=== PATIENT | male | born 1945 | race Caucasian/White ===

== ENCOUNTER → 2016-05-17 | Outpatient (CLI) | payer BC ==
[~2016-05-17] MED LIST: ADVA500A INH; ADVAI500I PO; ALBU.5I NEB; ALBU1AER INH; DUONI NEB; MONT10 PO; MONT10TA4 PO; OXYGENTANK NAS.CANULA; PRED20 PO; SYMB160A INH; VENTAER INH; Z.0.OXYGENDME NASAL
[2016-05-17 11:31] LABS: BLOOD GAS BASE EXCESS 13.9 mmol/L (-2-2); BLOOD GAS CARBOXYHEMOGLOBIN 3.2 % (0-4); BLOOD GAS HCO3 40 mmol/L (22-26); BLOOD GAS METHEMOGLOBIN 1.2 % (0-2); BLOOD GAS O2 HGB SATURATION 87 % (90-100); BLOOD GAS OXYGEN CONTENT 16.1 Vol % (12.0-20.0); BLOOD GAS PCO2 79 mmHg (38-42); BLOOD GAS PO2 59 mmHg (61-120); BLOOD GAS TOTAL HGB 13.2 G/DL (12.0-16.0); TEMP CORR TO 98.6
[2016-05-17 11:32] LABS: CRITICAL VALUE YES; DRAW SITE RT RADIAL; LITER FLOW 3 L/M; NUMBER OF ARTERIAL PUNCTURES 1; STAT NO; ULNAR PULSE PRESENT
--- NOTE | 2016-06-02 12:45 | RSPPFT ---
DATE OF PROCEDURE: 05/17/16 COMMENTS: VOLUMES DYNAMIC: FVC moderately reduced; FEV1 severely reduced. STATIC: TLC, VTG moderately reduced; RV normal. FLOWS: FEV1% and FEF 25-75 severely reduced. DIFFUSION: Severely reduced. FLOW VOLUME LOOP: Pattern of variable intrathoracic airways obstruction. IMPRESSION: Very severe obstructive ventilatory defect with co-existent restriction. There is a severe reduction in diffusion as well. No significant change post-bronchodilator.
== END ==
LOC: HRSP 10:31
PROVIDERS: ATTEND Internal Medicine
DX: J44.9 Chronic obstructive pulmonary disease, unspecified (principal)
CPT/HCPCS: 36600; 82805; 94060; 94726; 94729

== ENCOUNTER 2016-05-25 13:10 | Inpatient (IN) | payer BC, MEDICARE ==
[~2016-05-25] VITALS: Ht 180.3 cm; Wt 98.4 kg
[~2016-05-25 13:10] MED LIST changes: -ADVA500A INH; -ALBU.5I NEB; -MONT10TA4 PO; -OXYGENTANK NAS.CANULA; -PRED20 PO; -SYMB160A INH; -VENTAER INH
[2016-05-25 13:13] VITALS: BP 150/65; PULSE 95; RESP 35; O2SAT 97
[2016-05-25] MEDS ORDERED: ALBU.5I NEB (13:28)
[2016-05-25] MEDS ORDERED: VENTAER INH (13:28)
[2016-05-25] MEDS ORDERED: PRED20 PO (13:28)
[2016-05-25] MEDS ORDERED: MONT10TA4 PO (13:28)
[2016-05-25] MEDS ORDERED: ADVA500A INH (13:28)
--- NOTE | 2016-05-25 13:28 | PD ---
HPI Chief Complaint: Respiratory Distress Time Seen by Provider: 13:18 Travel History International Travel<30 days: No Contact w/Intl Traveler<30days: No Traveled to known affect area: No History of Present Illness HPI Patient is a 70-year-old male with history of COPD on chronic home O2 at 3 L who presents emergency Department with near respiratory arrest. Patient apparently took off his home oxygen and was doing house chores. Patient is unsure what happened and does not recall this. States he became increasingly short of breath, lightheaded. EMS was called and when patient arrived he was extremely dyspneic with O2 saturations in the low 50s. Maldonado, no capillary refill. Patient was given all albuterol 3, 125 mg Solu-Medrol and placed on nonrebreather with improvement of O2 into the 92-95% range. Patient states he still feels dyspneic, as though he is working harder to breathe. Please otherwise he's been well recently without cough, cold, chest congestion, etc. No chest pain. PFSH Past Medical History Asthma: Yes Blood Disorders: No Heart Rhythm Problems: No Cancer: No Cardiovascular Problems: No High Cholesterol: No Chemotherapy: No Chest Pain: No Congestive Heart Failure: No COPD: Yes Diabetes: No Endocrine: No Genitourinary: No Hepatitis: No Hiatal Hernia: No Immune Disorder: No Musculoskeletal: No Neurologic: No Psychiatric: No Reproductive: No Respiratory: Yes (CONTINUOUS OXYGEN SUPPLEMENT - 2L NC) Radiation Therapy: No Sleep Apnea: No Thyroid Disease: No Past Surgical History Abdominal Surgery: Yes (APPENDECTOMY) AICD: No Joint Replacement: No Pacemaker: No Other Surgery: Yes (APPY, L ELBOW FX) Social History Alcohol Use: Yes (several times/week ) Tobacco Use: Yes (trying to quit. 2 cigarettes Tuesday ) Substance Use: No Allergies-Medications (Allergen,Severity, Reaction): Coded Allergies: No Known Allergies (Unverified , 12/24/15) Reported Meds & Prescriptions Reported Meds & Active Scripts Active Reported Montelukast (Montelukast Sodium) 10 Mg Tab 10 Mg PO HS Ventolin Hfa 18 GM Inh (Albuterol Sulfate) 90 Mcg/Act Aer 1 Puff INH Q4H PRN Albuterol Neb (Albuterol Sulfate) 2.5 Mg/0.5 Ml Neb 2.5 Mg NEB QID NEB Note: The Albuterol Sulfate Inhalation Solution is concentrated and must be diluted. Read complete instructions carefully before using. Advair Diskus Inh (Fluticasone-Salmeterol Inh) 500-50 Mcg/Blist Aer 1 Puff INH BID Rinse mouth after use. Prednisone 20 Mg Tab 20 Mg PO QID Review of Systems Except as stated in HPI: all other systems reviewed are Neg Physical Exam Narrative GENERAL: Well-appearing male in no acute distress SKIN: Warm and dry. HEAD: Normocephalic. EYES:No scleral icterus. No injection or drainage. ENT: Mucous membranes pink and moist. NECK: Supple CARDIOVASCULAR: Regular rate and rhythm. No murmur appreciated. RESPIRATORY: Mild respiratory distress with prolonged expiratory phase. Decreased breath sounds throughout but no audible wheezing GASTROINTESTINAL: Abdomen soft, non-tender, nondistended. MUSCULOSKELETAL: No obvious deformities No edema. NEUROLOGICAL: Awake and alert. Normal speech. PSYCHIATRIC: Appropriate mood and affect; insight and judgment normal. Data Data Last Documented VS Vital Signs Date Time Temp Pulse Resp B/P Pulse Ox O2 Delivery O2 Flow Rate FiO2 05/25/16 13:41 96 Nasal Cannula 3.00 05/25/16 13:13 95 35 150/65 Orders Complete Blood Count With Diff (05/25/16 13:18) Basic Metabolic Panel (Bmp) (05/25/16 13:18) Troponin I (05/25/16 13:18) Arterial Blood Gas (Abg) (05/25/16 13:18) Iv Access Insert/Monitor (05/25/16 13:18) Electrocardiogram (05/25/16 13:18) Ecg Monitoring (05/25/16 13:18) Oximetry (05/25/16 13:18) Oxygen Administration (05/25/16 13:18) Chest, Single Ap (05/25/16 13:18) Sodium Chloride 0.9% Flush (Ns Flush) (05/25/16 13:30) Methylprednisolone So Succ Inj (Solumedr (05/25/16 13:30) Albuterol-Ipratropium Neb (Duoneb Neb) (05/25/16 13:30) Labs Laboratory Tests Test 05/25/16 05/25/16 13:23 13:49 White Blood Count 6.3 TH/MM3 Red Blood Count 4.25 MIL/MM3 Hemoglobin 12.9 GM/DL Hematocrit 40.4 % Mean Corpuscular Volume 95.1 FL Mean Corpuscular Hemoglobin 30.5 PG Mean Corpuscular Hemoglobin 32.1 % Concent Red Cell Distribution Width 13.9 % Platelet Count 129 TH/MM3 Mean Platelet Volume 9.0 FL Neutrophils (%) (Auto) 83.0 % Lymphocytes (%) (Auto) 9.0 % Monocytes (%) (Auto) 6.9 % Eosinophils (%) (Auto) 0.8 % Basophils (%) (Auto) 0.3 % Neutrophils # (Auto) 5.3 TH/MM3 Lymphocytes # (Auto) 0.6 TH/MM3 Monocytes # (Auto) 0.4 TH/MM3 Eosinophils # (Auto) 0.1 TH/MM3 Basophils # (Auto) 0.0 TH/MM3 CBC Comment DIFF FINAL Differential Comment Sodium Level 141 MEQ/L Potassium Level 4.7 MEQ/L Chloride Level 90 MEQ/L Carbon Dioxide Level GREATER THAN 45.0 MEQ/L Anion Gap 6 MEQ/L Blood Urea Nitrogen 18 MG/DL Creatinine 0.90 MG/DL Estimat Glomerular Filtration 83 ML/MIN Rate Random Glucose 115 MG/DL Calcium Level 9.3 MG/DL Troponin I LESS THAN 0.02 NG/ML Blood Gas Puncture Site RT RADIAL Blood Gas Patient Temperature 98.6 Blood Gas HCO3 49 mmol/L Blood Gas Base Excess 21.4 mmol/L Blood Gas Oxygen Saturation 92 % Arterial Blood pH 7.29 Arterial Blood Partial 105 mmHg Pressure CO2 Arterial Blood Partial 89 mmHG Pressure O2 Arterial Blood Oxygen Content 16.5 Vol % Arterial Blood 3.5 % Carboxyhemoglobin Arterial Blood Methemoglobin 1.0 % Blood Gas Hemoglobin 12.7 G/DL Oxygen Delivery Device NASAL CANNULA Blood Gas Liter Flow 3 L/M [facility] Medical Decision Making Medical Screen Exam Complete: Yes Emergency Medical Condition: Yes Medical Record Reviewed: Yes Differential Diagnosis 70-year-old male with history of COPD on home O2 at 3 L here with near respiratory arrest, after he took off his home oxygen with O2 sats in the 50s. Differential includes medication/oxygen nonadherence, near respiratory arrest, COPD exacerbation, pneumothorax, symptomatic anemia, arrhythmia, ACS. Narrative Course Patient placed on monitor, IV established and blood obtained. A twelve-lead EKG shows sinus rhythm without notable ST abnormalities, normal intervals. Patient hard he given Solu-Medrol per EMS. Given 3 duo nebs here. CBC, BMP, troponin, ABG notable for acute respiratory acidosis of pH 7.291, PCO2 105, PO2 89.1, bicarbonate 48.9. Patient was placed on BiPAP to help with hypercapnia. Patient had improvement in his work of breathing. Portable chest x-ray obtained by my read showing no acute abnormalities. Patient treated with azithromycin and will be admitted for further management of hypercapnic and hypoxic respiratory failure. Critical Care Narrative Aggregate critical care time was 45 minutes. Time to perform other separately billable procedures was not included in the critical care time. My time did not include minutes spent treating any other patients simultaneously or on activities that did not directly contribute to the patient's treatment. The services I provided to this patient were to treat and/or prevent clinically significant deterioration that could result in: Cardiopulmonary decompensation, , disability I provided critical care services requiring my management, as noted below: Chart data review, documentation time, medication orders and management, vital sign assessments/reviewing monitor data, ordering and reviewing lab tests, ordering and interpreting/reviewing x-rays and diagnostic studies, care of the patient and discussion of the patient with the admitting physicians. Diagnosis Primary Impression: Respiratory failure with hypoxia and hypercapnia Qualified Code: J96.21 - Acute on chronic respiratory failure with hypoxia and hypercapnia Additional Impression: COPD with exacerbation Admitting Information Admitting Physician Requests: Admit Jessica Harris MD May 25, 2016 13:27
[2016-05-25] MEDS ORDERED: methylPREDNISolone SOD SUCC 125 MG/2 ML VIAL IVP ONE (13:30)
[2016-05-25 13:41] VITALS: O2SAT 96
[2016-05-25] MEDS: RESP: ALBUTEROL 2.5 MG/IPRATROPIUM 0.5 MG NEB (SCH) INH ×3 (13:41→23:49)
[2016-05-25 13:49] LABS: AUTOMATED NEUTROPHIL # 5.3 TH/MM3 (1.8-7.7); BASOPHIL % 0.3 % (0.0-2.0); EOSINOPHIL # 0.1 TH/MM3 (0-0.4); EOSINOPHIL % 0.8 % (0.0-4.0); HEMATOCRIT 40.4 % (39.0-51.0); HEMO FLAGS DIFF FINAL; LYMPHOCYTE # 0.6 TH/MM3 (1.0-4.8); MEAN CELL VOLUME 95.1 FL (80.0-100.0); MEAN CORPUSCULAR HEMOGLOBIN 30.5 PG (27.0-34.0); MEAN CORPUSCULAR HGB CONC 32.1 % (32.0-36.0); MONO % 6.9 % (0.0-8.0); PLATELET COUNT 129 TH/MM3 (150-450); RED BLOOD COUNT 4.25 MIL/MM3 (4.50-5.90); RED CELL DISTRIBUTION WIDTH 13.9 % (11.6-17.2); WHITE BLOOD COUNT 6.3 TH/MM3 (4.0-11.0)
[2016-05-25 13:58] LABS: BLOOD GAS BASE EXCESS 21.4 mmol/L (-2-2); BLOOD GAS CARBOXYHEMOGLOBIN 3.5 % (0-4); BLOOD GAS HCO3 49 mmol/L (22-26); BLOOD GAS O2 HGB SATURATION 92 % (90-100); BLOOD GAS OXYGEN CONTENT 16.5 Vol % (12.0-20.0); BLOOD GAS PCO2 105 mmHg (38-42); BLOOD GAS PO2 89 mmHG (61-120); BLOOD GAS TOTAL HGB 12.7 G/DL (12.0-16.0); CRITICAL VALUE YES; TEMP CORR TO 98.6
[2016-05-25 13:59] LABS: DRAW SITE RT RADIAL; LITER FLOW 3 L/M; NUMBER OF ARTERIAL PUNCTURES 2; OXYGEN DEVICE NASAL CANNULA; STAT YES; ULNAR PULSE PRESENT
[2016-05-25 14:04] LABS: ANION GAP 6 MEQ/L (5-15); BICARBONATE GREATER THAN 45.0 MEQ/L (21.0-32.0); BLOOD UREA NITROGEN 18 MG/DL (7-18); CHLORIDE 90 MEQ/L (98-107); GLOMERULAR FILTRATION RATE 83 ML/MIN (>89); POTASSIUM 4.7 MEQ/L (3.5-5.1); SODIUM (NA) 141 MEQ/L (136-145)
--- NOTE | 2016-05-25 14:20 | RADRPT ---
EXAM DATE/TIME: 05/25/2016 14:00 [facility] COMPARISON: CHEST SINGLE AP, May 14, 2015, 9:28. INDICATIONS : Dyspnea. MEDICAL HISTORY : Chronic obstructive pulmonary disease. SURGICAL HISTORY : Appendectomy. ENCOUNTER: Initial ACUITY: 1 day PAIN SCORE: 0/10 LOCATION: Bilateral chest FINDINGS: A single view of the chest demonstrates the lungs to be symmetrically aerated without evidence of mas s, infiltrate or effusion. The cardiomediastinal contours are unremarkable. Osseous structures are intact. CONCLUSION: No acute disease. Seth Oliver MD on May 25, 2016 at 14:17 Board Certified Radiologist. This report was verified electronically.
[2016-05-25 14:23] VITALS: O2SAT 96
[2016-05-25] MEDS ORDERED: AZITHROMYCIN 600 MG TAB PO ONE (14:30)
[2016-05-25 15:38] LABS: BLOOD GAS BASE EXCESS 21.2 mmol/L (-2-2); BLOOD GAS CARBOXYHEMOGLOBIN 3.3 % (0-4); BLOOD GAS HCO3 48 mmol/L (22-26); BLOOD GAS O2 HGB SATURATION 92 % (90-100); BLOOD GAS OXYGEN CONTENT 17.3 Vol % (12.0-20.0); BLOOD GAS PCO2 87 mmHg (38-42); BLOOD GAS PO2 85 mmHG (61-120); BLOOD GAS TOTAL HGB 13.3 G/DL (12.0-16.0); TEMP CORR TO 98.6
[2016-05-25 15:39] LABS: CRITICAL VALUE YES; DRAW SITE LT RADIAL; FIO2 40 %; NUMBER OF ARTERIAL PUNCTURES 1; OXYGEN DEVICE BiPAP; STAT YES; ULNAR PULSE PRESENT
[2016-05-25] MEDS ORDERED: DO NOT ADM ANY ANTICOAGULANT DRUGS XX PRN (16:45)
[2016-05-25] MEDS ORDERED: CHLORHEXIDINE GLUCONATE 2 % 1 PACK (2 CLOTHS)(extra cloths) TOP PRN (16:45)
[2016-05-25] MEDS ORDERED: RESP: ALBUTEROL 2.5 MG/IPRATROPIUM 0.5 MG NEB (PRN) INH (17:00)
--- NOTE | 2016-05-25 17:04 | PD.CONS ---
[facility] Service Critical Care Medicine Consult Requested By Dr. Harris Reason for Consult hypercarbic respiratory failure Primary Care Physician Yocasta Choudhury MD History of Present Illness This is a 70yM with severe end-stage COPD on 3L home o2 who is followed by Dr. Giovany Alvarado. He was in his otherwise baseline state of health and he is moving into a new home, when he decided to help his move. She did this, he took off his oxygen, and worked harder than he typically does, became acutely hypoxic and hypercarbic requiring EMS to evaluate him. Per report, His SPO2 was in the 50s on arrival. When he arrived to the emergency department, he was immediately placed on BiPAP for respiratory distress. Initial ABG demonstrated 7.29/105/89. This quickly normalized to 7.36/87/85 with BiPAP. The patient denies any chest pain, fever, chills, recent changes in sputum production. Critical care medicine has been consulted to assist with management of his severe hypercarbic respiratory failure. Review of Systems Constitutional: DENIES: Fever, Chills Respiratory: DENIES: Cough, Wheezing, Sputum production Cardiovascular: DENIES: Chest pain Gastrointestinal: DENIES: Abdominal pain Past Family Social History Allergies: Coded Allergies: No Known Allergies (Unverified , 12/24/15) Past Medical History Asthma COPD, o2 dependent, 3L continuous at home. Past Surgical History appendectomy left elbow fx Reported Medications Montelukast (Montelukast Sodium) 10 Mg Tab 10 Mg PO HS Ventolin Hfa 18 GM Inh (Albuterol Sulfate) 90 Mcg/Act Aer 1 Puff INH Q4H PRN Albuterol Neb (Albuterol Sulfate) 2.5 Mg/0.5 Ml Neb 2.5 Mg NEB QID NEB Note: The Albuterol Sulfate Inhalation Solution is concentrated and must be diluted. Read complete instructions carefully before using. Advair Diskus Inh (Fluticasone-Salmeterol Inh) 500-50 Mcg/Blist Aer 1 Puff INH BID Rinse mouth after use. Prednisone 20 Mg Tab 20 Mg PO QID Active Ordered Medications See MAR Family History significant family history of severe COPD with multiple family members dying of hypercarbic respiratory failure. Social History +etoh, several times a week 2 cigarettes/day. Physical Exam Vital Signs Vital Signs Date Time Temp Pulse Resp B/P Pulse Ox O2 Delivery O2 Flow Rate FiO2 05/25/16 14:23 96 40 05/25/16 13:42 96 BiPAP 40 05/25/16 13:41 96 Nasal Cannula 3.00 05/25/16 13:13 95 35 150/65 97 05/25/16 13:13 98 Nasal Cannula 4 05/25/16 13:13 35 97 Nasal Cannula 4 Physical Exam gen: cachectic elderly male, moderate resp distress heent: nc. at. eddie. mucous membranes moist. neck: no jvd. bipap in place. trachea midline. chest: very decreased breath sounds bilaterally. minimal air entry. expiratory wheezes bilaterally. increased expiratory time cv: normal rate, regular rhythm. no appreciable murmurs. abd: soft, nontender, nondistended. no guarding. extr: no peripheral edema. distal pulses 2+ neuro: awake, alert, RASS 0. fc x 4. Laboratory Laboratory Tests Test 05/25/16 05/25/16 05/25/16 13:23 13:49 15:29 White Blood Count 6.3 Red Blood Count 4.25 Hemoglobin 12.9 Hematocrit 40.4 Mean Corpuscular Volume 95.1 Mean Corpuscular Hemoglobin 30.5 Mean Corpuscular Hemoglobin 32.1 Concent Red Cell Distribution Width 13.9 Platelet Count 129 Mean Platelet Volume 9.0 Neutrophils (%) (Auto) 83.0 Lymphocytes (%) (Auto) 9.0 Monocytes (%) (Auto) 6.9 Eosinophils (%) (Auto) 0.8 Basophils (%) (Auto) 0.3 Neutrophils # (Auto) 5.3 Lymphocytes # (Auto) 0.6 Monocytes # (Auto) 0.4 Eosinophils # (Auto) 0.1 Basophils # (Auto) 0.0 CBC Comment DIFF FINAL Differential Comment Sodium Level 141 Potassium Level 4.7 Chloride Level 90 Carbon Dioxide Level GREATER THAN 45.0 Anion Gap 6 Blood Urea Nitrogen 18 Creatinine 0.90 Estimat Glomerular Filtration 83 Rate Random Glucose 115 Calcium Level 9.3 Troponin I LESS THAN 0.02 Blood Gas Puncture Site RT RADIAL LT RADIAL Blood Gas Patient Temperature 98.6 98.6 Blood Gas HCO3 49 48 Blood Gas Base Excess 21.4 21.2 Blood Gas Oxygen Saturation 92 92 Arterial Blood pH 7.29 7.36 Arterial Blood Partial 105 87 Pressure CO2 Arterial Blood Partial 89 85 Pressure O2 Arterial Blood Oxygen Content 16.5 17.3 Arterial Blood 3.5 3.3 Carboxyhemoglobin Arterial Blood Methemoglobin 1.0 1.0 Blood Gas Hemoglobin 12.7 13.3 Oxygen Delivery Device NASAL CANNULA BiPAP Blood Gas Liter Flow 3 Blood Gas Ventilator Setting 12/40% Blood Gas Inspired Oxygen 40 Result Diagram: 05/25/16 1323 05/25/16 1323 Assessment and Plan Assessment and Plan Assessment: 70yM with history of severe end-stage COPD o2 dependent who took off his oxygen and had acute hypercarbic respiratory failure. Now improving on BiPAP. I had a long discussion with him about how this is likely a "near miss" in terms of respiratory failures, and he may get better from this, but his degree of severe COPD is certainly end-stage, and the next time he has a COPD exacerbation, it will likely be life-ending. If he requires a breathing tube, he will likely never separate from mechanical ventilation. He expressed understanding of this, and even stated that part of the reason for buying this house and moving is so his will be prepared for life without him. He does not want to be DNR/DNI at this moment, because he wants to take time to talk to his about it. But in our discussions, his personal goals are to be DNR/ DNI and not to be intubated. In congruence with his wishes, we will keep him FULL CODE at this point, but I did tell him that if it came to this, we would need to revisit his wishes. I have also discussed his care with his long-time internet marketing strategist Dr. Giovany Alvarado. He agrees with my assessment. We will plan on give him a short course of iv steroids and then place him back on his home po prednisone. We will also try 24h of acetazolamide to help mitigate his severe compensatory metabolic alkalosis in an attempt to be a slight respiratory stimulant and provide some buffer in his respiratory acidosis, so maybe he has slightly more physiologic reserve in the event that he has another respiratory failure event. I have discussed his care with Dr. Mike, and she feels comfortable managing this patient on her own service. I agree with her assessment. Active Problems: Severe Acute Hypercarbic and Hypoxic respiratory failure End-stage COPD Severe compensatory metabolic alkalosis Recommendations: -- methylprednisolone 60mg iv q12h, transitioning back to oral prednisone in the near future -- pulm consult, Dr. Alvarado and his colleagues following -- Diamox 500mg iv q8h x 24h to help with severe compensatory metabolic alkalosis -- Bipap prn. -- regular diet as tolerated -- aggressive pulmonary toilet. Critical care medicine will sign-off. Please re-consult as needed. Code Status Full Code. see discussion above. Discussed Condition With Dr. Alvarado, Dr. Mike, Dr. Harrsi. Carlos Mathias MD May 25, 2016 17:04
--- NOTE | 2016-05-25 17:13 | HHI.HP ---
[facility] Service [facility] Primary Care Physician Yocasta Choudhury MD Admission Diagnosis hypercapnic and hypoxic respiratory failure Diagnoses: Chief Complaint: Shortness of breath Travel History International Travel<30 Days: No Contact w/Intl Traveler <30 Da: No Traveled to Known Affected Are: No History of Present Illness Patient is a very pleasant 70-year-old male with known history of severe COPD oxygen dependent at 2 L nasal cannula was still smokes about half pack per day whose baseline exercise capacity is very limited by his chronic respiratory status. He also did admit that lately has been getting more forgetful. He was doing his regular household work daily when he took off his oxygen as he went to one area off his house to another room. Forgot about it and started getting short of breath. Took him while to get to the phone and by the time he called 911 patient was having labored breathing. He was given 3 breathing treatments at the ambulance and was brought in here for further evaluation promptly. On evaluation at the ER patient received breathing treatment and it showed a PCO2 of 10 and a pH of 7.29. Patient though is awake alert THIS time. Patient was placed on BiPAP with improvement of blood gas. Patient admitted for further evaluation and management. Patient states periodic coughing no sputum production. Baseline has two-pillow orthopnea occasional leg swelling. He is followed closely by Dr. Vinayak Alvarado. At the ER , placed on BiPAP and is now comfortable. He is very compliant with his inhalers. And as stated he still smokes half pack a day. Review of Systems Constitutional: DENIES: Diaphoretic episodes, Fatigue, Fever, Weight gain, Weight loss, Chills, Dizziness, Change in appetite, Night Sweats Endocrine: DENIES: Heat/cold intolerance, Polydipsia, Polyuria, Polyphagia Eyes: DENIES: Blurred vision, Diplopia, Eye inflammation, Eye pain, Vision loss , Photosensitivity, Double Vision Ears, nose, mouth, throat: DENIES: Tinnitus, Hearing loss, Vertigo, Nasal discharge, Oral lesions, Throat pain, Hoarseness, Ear Pain, Running Nose, Epistaxis, Sinus Pain, Toothache, Odynophagia Respiratory: COMPLAINS OF: Shortness of breath Cardiovascular: COMPLAINS OF: Dyspnea on Exertion (severe COPD) Gastrointestinal: DENIES: Abdominal pain, Black stools, Bloody stools, Constipation, Diarrhea, Nausea, Vomiting, Difficulty Swallowing, Anorexia Genitourinary: DENIES: Sexual dysfunction, Urinary frequency, Urinary incontinence, Urgency, Hematuria, Dysuria, Nocturia, Penile Discharge, Testicular Pain, Testicular Swelling Musculoskeletal: DENIES: Joint pain, Muscle aches, Stiffness, Joint Swelling, Back pain, Neck pain Integumentary: DENIES: Abnormal pigmentation, Nail changes, Pruritus, Rash Hematologic/lymphatic: DENIES: Bruising, Lymphadenopathy Immunologic/allergic: DENIES: Eczema, Urticaria Neurologic: DENIES: Abnormal gait, Headache, Localized weakness, Paresthesias, Seizures, Speech Problems, Tremor, Poor Balance Psychiatric: DENIES: Anxiety, Confusion, Mood changes, Depression, Hallucinations, Agitation, Suicidal Ideation, Homicidal Ideation, Delusions Past Family Social History Past Medical History Severe COPD oxygen dependent at 2 L/m nasal cannula 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 Past Surgical History Surgical resection of a chest wall he physician "melanoma" September 2016 Reported Medications Prednisone 20 mg started 3 days ago Ventolin metered-dose inhalers Combivent/Symbicort Dual nebs nebulization when necessary Allergies: Coded Allergies: No Known Allergies (Unverified , 12/24/15) Family History Noncontributory Social History Still smokes half pack per day 5-6 packs of beer per week Denies any substance abuse Physical Exam Vital Signs Vital Signs Date Time Temp Pulse Resp B/P Pulse Ox O2 Delivery O2 Flow Rate FiO2 05/25/16 14:23 96 40 05/25/16 13:42 96 BiPAP 40 05/25/16 13:41 96 Nasal Cannula 3.00 05/25/16 13:13 95 35 150/65 97 05/25/16 13:13 98 Nasal Cannula 4 05/25/16 13:13 35 97 Nasal Cannula 4 Physical Exam GENERAL: Awake alert oriented 3 , the patient comfortable SKIN: No rashes, ecchymoses or lesions. Cool and dry. HEAD: Atraumatic. Normocephalic. No temporal or scalp tenderness. EYES: Pupils equal round and reactive. Extraocular motions intact. No scleral icterus. No injection or drainage. ENT: Nose without bleeding, purulent drainage or septal hematoma. Throat without erythema, . Airway patent. NECK: Trachea midline. No JVD or lymphadenopathy. Supple, nontender, no meningeal signs. CARDIOVASCULAR: Regular rate and rhythm without murmurs, gallops, or rubs. RESPIRATORY: Decreased breath sounds bilaterally Chest wall with well-healed incision on the left side of the chest GASTROINTESTINAL: Abdomen soft, non-tender, nondistended.. No guarding. MUSCULOSKELETAL: Extremities without clubbing, cyanosis, or edema. No joint tenderness, effusion, or edema noted. No calf tenderness. Negative Homans sign bilaterally. 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 Cranial nerves II through XII intact. Motor and sensory grossly within normal limits. Five out of 5 muscle strength in all muscle groups. Normal speech. Laboratory Laboratory Tests Test 05/25/16 05/25/16 05/25/16 13:23 13:49 15:29 White Blood Count 6.3 Red Blood Count 4.25 Hemoglobin 12.9 Hematocrit 40.4 Mean Corpuscular Volume 95.1 Mean Corpuscular Hemoglobin 30.5 Mean Corpuscular Hemoglobin 32.1 Concent Red Cell Distribution Width 13.9 Platelet Count 129 Mean Platelet Volume 9.0 Neutrophils (%) (Auto) 83.0 Lymphocytes (%) (Auto) 9.0 Monocytes (%) (Auto) 6.9 Eosinophils (%) (Auto) 0.8 Basophils (%) (Auto) 0.3 Neutrophils # (Auto) 5.3 Lymphocytes # (Auto) 0.6 Monocytes # (Auto) 0.4 Eosinophils # (Auto) 0.1 Basophils # (Auto) 0.0 CBC Comment DIFF FINAL Differential Comment Sodium Level 141 Potassium Level 4.7 Chloride Level 90 Carbon Dioxide Level GREATER THAN 45.0 Anion Gap 6 Blood Urea Nitrogen 18 Creatinine 0.90 Estimat Glomerular Filtration 83 Rate Random Glucose 115 Calcium Level 9.3 Troponin I LESS THAN 0.02 Blood Gas Puncture Site RT RADIAL LT RADIAL Blood Gas Patient Temperature 98.6 98.6 Blood Gas HCO3 49 48 Blood Gas Base Excess 21.4 21.2 Blood Gas Oxygen Saturation 92 92 Arterial Blood pH 7.29 7.36 Arterial Blood Partial 105 87 Pressure CO2 Arterial Blood Partial 89 85 Pressure O2 Arterial Blood Oxygen Content 16.5 17.3 Arterial Blood 3.5 3.3 Carboxyhemoglobin Arterial Blood Methemoglobin 1.0 1.0 Blood Gas Hemoglobin 12.7 13.3 Oxygen Delivery Device NASAL CANNULA BiPAP Blood Gas Liter Flow 3 Blood Gas Ventilator Setting 12/5/40% Blood Gas Inspired Oxygen 40 Result Diagram: 05/25/16 1323 05/25/16 1323 Imaging Chest x-ray no acute infiltrates or effusion 12-lead EKG shows sinus rhythm no acute ST-T wave changes Assessment and Plan Assessment and Plan 70-year-old male presenting with Acute respiratory failure with acute C02 retention - underlying COPD - O2 dependent Acute respiratory acidosis on ABG. I think what happened was patient admits to getting more forgetful lately and became short of breath without his oxygen when he walked to another room in his home. when EMS arrived - placed him on full mask 100% mask XRay reviewed Patient now awake alert with sats 92% at O2 2-3 nasal cannula baseline. continue on steroids - q 12. , DuoNeb nebulization every 4-6 hours scheduled We'll start patient on Lovenox for DVT prophylaxis. Protonix 40 mg po daily Physician Certification 2 Midnight Certification Type: Admission for Inpatient Services Order for Inpatient Services The services are ordered in accordance with Medicare regulations or non- Medicare payer requirements, as applicable. In the case of services not specified as inpatient-only, they are appropriately provided as inpatient services in accordance with the 2-midnight benchmark. Estimated LOS (days): 3 days is the estimated time the patient will need to remain in the hospital, assuming treatment plan goals are met and no additional complications. Post-Hospital Plan: Not yet determined iN Mike MD May 25, 2016 17:13
[2016-05-25] MEDS: ENOXAPARIN SODIUM 30 MG/0.3 ML SYRINGE SQ SCH (17:51)
[2016-05-25 18:00] VITALS: PULSE 95
--- NOTE | 2016-05-25 19:44 | MB ---
cc: Tiny BAINS M.D. DATE OF CONSULTATION: 05/25/2016 HISTORY OF PRESENT ILLNESS Damian is a 70-year-old white male whom I have followed now for almost a decade with very severe COPD and unfortunately he has never been able to quit smoking completely despite multiple attempts. He has recently been smoking just a few cigarettes a day. He presented to the ED today confused and hypoxic. He had called 911 himself recognizing that he was in trouble. His was away at the time. On presentation on 3 liters his PO2 was 89, pH 7.29 with a PCO2 of 105. He was placed on BiPAP and seen by Critical Care, admitted to the intensive care unit, and on BiPAP a few hours later at 40% his PO2 was 85 with a pH 7.36 and a PCO2 of 87. He received IV corticosteroids, aerosolized bronchodilators and Diamox. He says he is feeling better. To my recollection this is the first time Damian had been in the hospital in the decade that I have known him. I had seen him in the office about a week ago. He had been gradually declining. We had a very extensive conversation at that time about the severity of his illness. His lung functions are in the range of 20% and his resting PCO2s were about 80. He was doing his best to quit smoking. We had him on an extensive bronchodilator regimen and low dose of steroid, but today apparently he had taken his oxygen off, was trying to do some work around the house and just got progressively more confused and weak. He has had no chest pain. He has had no on usual cough or congestion. No purulent sputum. No increasing edema in his legs. PAST MEDICAL HISTORY 1. Degenerative arthritis of his back. 2. Melanoma removed in 2016 without evidence of recurrence to date. No significant prior cardiovascular history. ALLERGIES None known. MEDICATIONS The medications are reviewed in the EMR. SOCIAL HISTORY , living with his Rashmi. He just retired from the postal service. Smoking as noted, probably 80-100 pack years. Alcohol on occasion. REVIEW OF SYSTEMS Negative other than that noted above. PHYSICAL EXAMINATION GENERAL: Damian is awake, alert, comfortable at rest now, on 3-4 liters nasal cannula. VITAL SIGNS: Pulse 95, blood pressure 150/60, respirations 24, sat 96%. HEENT: Sclera anicteric. Mucous membranes are moist. NECK: The neck veins are not distended. CHEST: Severely diminished throughout but remarkably quiet. No wheezes, no rhonchi, no basilar rales. HEART: Regular rhythm. No harsh murmur. EXTREMITIES: No pitting edema at the ankles and no cyanosis of the nail beds on O2. IMAGING Chest x-ray: No acute disease. LABORATORY White blood cell count 6300, hemoglobin 12.9, BUN 18, creatinine 0.9, carbon dioxide over 45. Nasal screen for MRSA is negative. DISCUSSION Mr. Castillo presents with an acute episode of impending respiratory failure but fortunately he called 911 in time and actually feels quite good now. He does not appear to have any obvious infectious complication. May have simply been a matter of becoming severely hypoxic off of his oxygen. I spoke to Dr. Garza. Will continue him on aerosol treatments and IV corticosteroids for the next 24 hours. Diamox has been started given the marked elevation in CO2 and bicarbonate. Further diagnostic and/or therapeutic intervention will depend on his response and ongoing clinical course. Damian and I have had discussion previously about ventilatory support. He has not made a firm decision on that at this point but continues to consider that and discuss it with his . At this point he is a full code. R. MD FAVIOLA Crabtree/[place] /7:09 PM /8:23 AM
[2016-05-25 20:00] VITALS: BP 159/74; PULSE 109; RESP 28; TEMP 98.7; O2SAT 99
[2016-05-25] MEDS: methylPREDNISolone SOD SUCC 125 MG/2 ML VIAL IV PUSH SCH (20:40)
[2016-05-25] MEDS: SODIUM CHLORIDE 0.9% FLUSH 5 ML FLUSH IVF PRN (20:41)
[2016-05-25 22:00] VITALS: PULSE 100
[2016-05-26] VITALS (15 sets, daily range): BP systolic 126–152; BP diastolic 59–76; PULSE 76–107; RESP 20–32; TEMP 97.3–99.6; O2SAT 93–97
[2016-05-26 00:58] LABS: BLOOD GAS BASE EXCESS 13.5 mmol/L (-2-2); BLOOD GAS CARBOXYHEMOGLOBIN 2.6 % (0-4); BLOOD GAS HCO3 41 mmol/L (22-26); BLOOD GAS METHEMOGLOBIN 1.5 % (0-2); BLOOD GAS O2 HGB SATURATION 94 % (90-100); BLOOD GAS OXYGEN CONTENT 18.1 Vol % (12.0-20.0); BLOOD GAS PCO2 88 mmHg (38-42); BLOOD GAS PO2 117 mmHg (61-120); BLOOD GAS TOTAL HGB 13.6 G/DL (12.0-16.0); TEMP CORR TO 98.6
[2016-05-26 00:59] LABS: CRITICAL VALUE YES; OXYGEN DEVICE BIPAP; VENT SETTINGS IPAP10/EPAP5
[2016-05-26 01:00] LABS: DRAW SITE RT RADIAL; FIO2 40 %; NUMBER OF ARTERIAL PUNCTURES 1; STAT YES; ULNAR PULSE PRESENT
[2016-05-26] MEDS: RESP: ALBUTEROL 2.5 MG/IPRATROPIUM 0.5 MG NEB (SCH) INH ×5 (03:04→20:44)
[2016-05-26] MEDS: CHLORHEXIDINE GLUCONATE 2 % 1 PACK (2 CLOTHS)(taper/protocol) TOP SCH (04:00)
[2016-05-26 06:01] LABS: BLOOD GAS BASE EXCESS 13.8 mmol/L (-2-2); BLOOD GAS CARBOXYHEMOGLOBIN 2.5 % (0-4); BLOOD GAS HCO3 41 mmol/L (22-26); BLOOD GAS METHEMOGLOBIN 1.3 % (0-2); BLOOD GAS O2 HGB SATURATION 91 % (90-100); BLOOD GAS OXYGEN CONTENT 17.4 Vol % (12.0-20.0); BLOOD GAS PCO2 94 mmHg (38-42); BLOOD GAS PO2 82 mmHg (61-120); BLOOD GAS TOTAL HGB 13.5 G/DL (12.0-16.0); TEMP CORR TO 98.6
[2016-05-26 06:03] LABS: CRITICAL VALUE YES; OXYGEN DEVICE BiPAP
[2016-05-26 06:04] LABS: DRAW SITE LT RADIAL; FIO2 35 %; NUMBER OF ARTERIAL PUNCTURES 2; STAT NO; ULNAR PULSE PRESENT; VENT SETTINGS IPAP10/EPAP5
[2016-05-26] MEDS: methylPREDNISolone SOD SUCC 125 MG/2 ML VIAL IV PUSH SCH (09:12)
[2016-05-26] MEDS ORDERED: INFLUENZA VIRUS VACCINE (QUADRIVALENT) 0.5 ML SYR IM ONE (10:00)
--- NOTE | 2016-05-26 10:42 | HHI.PR ---
Subjective Remarks awake and alert ORIENTED X 3 denies any nausea or vomiting, cough breathing near baseline early this am- per staff- confused and tried to pull everything out- ABG shows persistent respiratory acidosis d/w staff nurse- per he is on steroid taper - course Objective Vitals Vital Signs Date Time Temp Pulse Resp B/P Pulse Ox O2 Delivery O2 Flow Rate FiO2 05/26/16 10:00 103 05/26/16 08:00 76 05/26/16 08:00 97.3 84 24 144/76 95 05/26/16 06:00 85 05/26/16 04:41 94 35 05/26/16 04:00 98.9 90 28 152/72 93 05/26/16 04:00 90 05/26/16 02:00 91 05/26/16 00:10 97 40 05/26/16 00:00 107 05/26/16 00:00 98.8 107 32 152/67 94 05/25/16 22:00 100 05/25/16 20:00 109 05/25/16 20:00 98.7 109 28 159/74 99 05/25/16 18:00 95 05/25/16 14:23 96 40 05/25/16 13:42 96 BiPAP 40 05/25/16 13:41 96 Nasal Cannula 3.00 05/25/16 13:13 95 35 150/65 97 05/25/16 13:13 98 Nasal Cannula 4 05/25/16 13:13 35 97 Nasal Cannula 4 I/O 05/25/16 05/25/16 05/25/16 05/26/16 05/26/16 05/26/16 07:00 15:00 23:00 07:00 15:00 23:00 Intake Total 350 ml 90 ml Output Total 950 ml 550 ml Balance -600 ml -460 ml Intake Oral 350 ml 90 ml IV Total 0 ml 0 ml Output Urine Total 950 ml 550 ml # Bowel Movements 0 0 Result Diagram: 05/25/16 1323 05/25/16 1323 Imaging Last Impressions Chest X-Ray 05/25/16 1318 Signed Impressions: Service Date/Time: Wednesday, May 25, 2016 14:00 - CONCLUSION: No acute disease. Seth Oliver MD Objective Remarks awake and alert, oriented x 3 good Sat on 3 LNC anicteric decrease breath sounds bilateral, no wheezes regular rhythm abdomen soft, extremities no edema neuro exam- unremarkable A/P Assessment and Plan 70-year-old male presenting with Acute respiratory failure with acute C02 retention - underlying COPD - O2 dependent- chronic C02 retainer Patient now awake alert with sats 92% at O2 2- nasal cannula baseline. continue on steroids - q 12- change to po Prednisone [address] Alvarado ff along with us DuoNeb nebulization every 4-6 hours scheduled lovenox for DVT prophylaxis. Increase activity- gradually as tolerated Ni Mike MD May 26, 2016 10:42 Ni Mike MD May 26, 2016 10:42
[2016-05-26] MEDS: NICOTINE 7 MG/24 HR PATCH TD SCH (11:30)
[2016-05-26] MEDS: ENOXAPARIN SODIUM 30 MG/0.3 ML SYRINGE SQ SCH (18:00)
--- NOTE | 2016-05-26 20:23 | EKG ---
Date Performed: 05/25/2016 Time Performed: 13:21:03 PTAGE: 70 years EKG: Sinus rhythm PREVIOUS TRACING : 12/08/2015 17.53 Compared to prior tracing no significant change DOCTOR: Chavez Veronica Interpretating Date/Time 05/26/2016 20:21:28
[2016-05-26] MEDS: predniSONE 20 MG TAB PO SCH (20:51)
[2016-05-26] MEDS: REMOVE OLD NICODERM (NICOTINE) PATCH TD SCH (20:52)
--- NOTE | 2016-05-26 21:48 | HHI.PR ---
Subjective Remarks 70YOWM with Severe COPD, Hypercapnoic RF Uses CPAp feels much better no cough or sp Objective Vital Signs Vital Signs Date Time Temp Pulse Resp B/P Pulse Ox O2 Delivery O2 Flow Rate FiO2 05/26/16 18:00 98 05/26/16 16:00 93 05/26/16 16:00 98.0 91 20 130/69 94 05/26/16 14:00 98 05/26/16 12:00 93 05/26/16 12:00 97.7 93 22 126/59 93 05/26/16 10:00 103 05/26/16 08:00 76 05/26/16 08:00 97.3 84 24 144/76 95 05/26/16 06:00 85 05/26/16 04:41 94 35 05/26/16 04:00 98.9 90 28 152/72 93 05/26/16 04:00 90 05/26/16 02:00 91 05/26/16 00:10 97 40 05/26/16 00:00 107 05/26/16 00:00 98.8 107 32 152/67 94 05/25/16 22:00 100 I/O 05/25/16 05/25/16 05/25/16 05/26/16 05/26/16 05/26/16 07:00 15:00 23:00 07:00 15:00 23:00 Intake Total 350 ml 90 ml 460 ml Output Total 950 ml 550 ml 700 ml Balance -600 ml -460 ml -240 ml Intake Oral 350 ml 90 ml 460 ml IV Total 0 ml 0 ml 0 ml Output Urine Total 950 ml 550 ml 700 ml # Bowel Movements 0 0 0 Result Diagram: 05/25/16 1323 05/25/16 1323 Objective Remarks GENERAL: WBWN WM, mild sob SKIN: Warm and dry. HEAD: Normocephalic. EYES: No scleral icterus. No injection or drainage. NECK: Supple, trachea midline. No JVD or lymphadenopathy. CARDIOVASCULAR: Regular rate and rhythm without murmurs, gallops, or rubs. RESPIRATORY: Breath sounds equal bilaterally. No accessory muscle use. End exp rhonchi GASTROINTESTINAL: Abdomen soft, non-tender, nondistended. MUSCULOSKELETAL: No cyanosis, or edema. BACK: Nontender without obvious deformity. No CVA tenderness. A/P Assessment and Plan Hypercapnoic RF Severe COPD Anxiety PLAN: Use CPAP at night Aerosol nebs Cont Abx PO prednisone Supplement 02 to keep sat >90% Cr Dickerson MD May 26, 2016 21:48
[2016-05-27] VITALS (17 sets, daily range): BP systolic 117–151; BP diastolic 57–72; PULSE 79–100; RESP 20–30; TEMP 97.8–99.2; O2SAT 91–97
[2016-05-27] MEDS: RESP: ALBUTEROL 2.5 MG/IPRATROPIUM 0.5 MG NEB (SCH) INH ×7 (00:41→23:10)
[2016-05-27] MEDS: CHLORHEXIDINE GLUCONATE 2 % 1 PACK (2 CLOTHS)(taper/protocol) TOP SCH (04:00)
--- NOTE | 2016-05-27 07:45 | HHI.PR ---
Subjective Remarks patient feeling much better had a good night sleep Objective Vitals Vital Signs Date Time Temp Pulse Resp B/P Pulse Ox O2 Delivery O2 Flow Rate FiO2 05/27/16 06:47 95 3.00 05/27/16 06:00 83 05/27/16 04:19 93 35 05/27/16 04:00 97.8 79 24 141/66 94 05/27/16 04:00 79 05/27/16 02:00 86 05/27/16 01:09 97 35 05/27/16 00:00 99.2 24 151/71 97 05/27/16 00:00 93 05/26/16 22:00 89 05/26/16 20:44 96 Nasal Cannula 3.00 05/26/16 20:00 99.6 92 24 139/63 95 05/26/16 20:00 92 05/26/16 18:00 98 05/26/16 16:00 93 05/26/16 16:00 98.0 91 20 130/69 94 05/26/16 14:00 98 05/26/16 12:00 93 05/26/16 12:00 97.7 93 22 126/59 93 05/26/16 10:00 103 05/26/16 08:00 76 05/26/16 08:00 97.3 84 24 144/76 95 I/O 05/26/16 05/26/16 05/26/16 05/27/16 05/27/16 05/27/16 07:00 15:00 23:00 07:00 15:00 23:00 Intake Total 90 ml 460 ml 600 ml 240 ml Output Total 550 ml 700 ml 1150 ml 300 ml Balance -460 ml -240 ml -550 ml -60 ml Intake Oral 90 ml 460 ml 600 ml 240 ml IV Total 0 ml 0 ml Output Urine Total 550 ml 700 ml 1150 ml 300 ml # Voids 3 1 # Bowel Movements 0 0 Result Diagram: 05/25/16 1323 05/25/16 1323 Imaging Last Impressions Chest X-Ray 05/25/16 1318 Signed Impressions: Service Date/Time: Wednesday, May 25, 2016 14:00 - CONCLUSION: No acute disease. Seth Oliver MD Objective Remarks awake and alert, oriented x 3 good Sat on 3 LNC anicteric decrease breath sounds bilateral, no wheezes, jo regular rhythm abdomen soft, extremities no edema neuro exam- unremarkable A/P Assessment and Plan 70-year-old male presenting with Acute respiratory failure with acute C02 retention - underlying COPD - O2 dependent- chronic C02 retainer Patient now awake alert with sats 92% at O2 2- nasal cannula baseline. continue on steroids - q 12- change to po Prednisone [address] Alvarado ff along with us DuoNeb nebulization every 4-6 hours scheduled lovenox for DVT prophylaxis. Increase activity- as tolerated TRansfer to floor Ni Mike MD May 27, 2016 07:45 Ni Mike MD May 27, 2016 07:45
[2016-05-27] MEDS: predniSONE 20 MG TAB PO SCH ×2 (08:13→20:08)
[2016-05-27] MEDS: NICOTINE 7 MG/24 HR PATCH TD SCH (08:13)
[2016-05-27] MEDS: ENOXAPARIN SODIUM 30 MG/0.3 ML SYRINGE SQ SCH (17:51)
--- NOTE | 2016-05-27 18:26 | HHI.PR ---
Subjective Remarks 70YOWM with Severe COPD, Hypercapnoic RF Uses CPAP feels much better no cough or sp On NC, doing much better Objective Vital Signs Vital Signs Date Time Temp Pulse Resp B/P Pulse Ox O2 Delivery O2 Flow Rate FiO2 05/27/16 18:00 93 05/27/16 16:00 87 05/27/16 16:00 98.0 92 20 146/70 94 05/27/16 14:00 93 05/27/16 12:00 97.9 92 20 150/72 94 05/27/16 12:00 87 05/27/16 10:00 83 05/27/16 08:17 94 Nasal Cannula 3.00 05/27/16 08:00 98.0 87 22 125/63 95 05/27/16 08:00 87 05/27/16 06:47 95 3.00 05/27/16 06:00 83 05/27/16 04:19 93 35 05/27/16 04:00 97.8 79 24 141/66 94 05/27/16 04:00 79 05/27/16 02:00 86 05/27/16 01:09 97 35 05/27/16 00:00 99.2 24 151/71 97 05/27/16 00:00 93 05/26/16 22:00 89 05/26/16 20:44 96 Nasal Cannula 3.00 05/26/16 20:00 99.6 92 24 139/63 95 05/26/16 20:00 92 I/O 05/26/16 05/26/16 05/26/16 05/27/16 05/27/16 05/27/16 07:00 15:00 23:00 07:00 15:00 23:00 Intake Total 90 ml 460 ml 600 ml 240 ml 840 ml Output Total 550 ml 700 ml 1150 ml 300 ml 700 ml Balance -460 ml -240 ml -550 ml -60 ml 140 ml Intake Oral 90 ml 460 ml 600 ml 240 ml 840 ml IV Total 0 ml 0 ml 0 ml Output Urine Total 550 ml 700 ml 1150 ml 300 ml 700 ml # Voids 3 1 # Bowel Movements 0 0 0 Result Diagram: 05/25/16 1323 05/25/16 1323 Objective Remarks GENERAL: WBWN WM, mild sob SKIN: Warm and dry. HEAD: Normocephalic. EYES: No scleral icterus. No injection or drainage. NECK: Supple, trachea midline. No JVD or lymphadenopathy. CARDIOVASCULAR: Regular rate and rhythm without murmurs, gallops, or rubs. RESPIRATORY: Breath sounds equal bilaterally. No accessory muscle use. End exp rhonchi GASTROINTESTINAL: Abdomen soft, non-tender, nondistended. MUSCULOSKELETAL: No cyanosis, or edema. BACK: Nontender without obvious deformity. No CVA tenderness. A/P Assessment and Plan Hypercapnoic RF Severe COPD Anxiety PLAN: Use CPAP at night Aerosol nebs Cont Abx PO prednisone Supplement 02 to keep sat >90% ABG in AM Cr Dickerson MD May 27, 2016 18:25
[2016-05-27] MEDS: SODIUM CHLORIDE 0.9% FLUSH 5 ML FLUSH IVF PRN (20:08)
[2016-05-27] MEDS: REMOVE OLD NICODERM (NICOTINE) PATCH TD SCH (20:19)
[2016-05-28] VITALS (10 sets, daily range): BP systolic 130–149; BP diastolic 63–76; PULSE 77–102; RESP 15–22; TEMP 97.9–98.9; O2SAT 92–98
[2016-05-28] MEDS: RESP: ALBUTEROL 2.5 MG/IPRATROPIUM 0.5 MG NEB (SCH) INH ×5 (03:38→19:35)
[2016-05-28] MEDS: CHLORHEXIDINE GLUCONATE 2 % 1 PACK (2 CLOTHS)(taper/protocol) TOP SCH (04:00)
--- NOTE | 2016-05-28 08:59 | HHI.PR ---
Subjective Remarks Pt states that his breathing hasn't changed much compared to when he came in, states that at least he knows that his CO2 is improving. Pt states he is interested in a palliative care consult and would like his to be present during the encounter to discuss goals of care. He tells me that his memory has gotten worst and he is forgetting things quickly and he remembers that he didn' t have his oxygen when he started feeling bad. He is very concerned about his and feels bad that he cannot help her to do anything. Objective Vitals Vital Signs Date Time Temp Pulse Resp B/P Pulse Ox O2 Delivery O2 Flow Rate FiO2 05/28/16 08:00 93 05/28/16 07:57 92 Nasal Cannula 3.00 05/28/16 07:00 95 Nasal Cannula 3.00 05/28/16 04:17 96 Nasal Cannula 3.00 05/28/16 04:03 98 30 05/28/16 04:00 95 Nasal Cannula 3.00 05/28/16 04:00 98.4 77 21 149/76 96 05/28/16 04:00 77 05/28/16 01:06 95 35 05/28/16 00:00 98.6 89 15 147/70 96 05/28/16 00:00 89 05/27/16 23:10 95 35 05/27/16 23:00 94 Bi-Pap 05/27/16 20:00 100 05/27/16 20:00 91 Nasal Cannula 3.00 05/27/16 20:00 98.4 100 30 117/57 91 05/27/16 19:27 95 Nasal Cannula 3.00 05/27/16 18:00 93 05/27/16 16:00 87 05/27/16 16:00 98.0 92 20 146/70 94 05/27/16 14:00 93 05/27/16 12:00 97.9 92 20 150/72 94 05/27/16 12:00 87 05/27/16 10:00 83 I/O 05/27/16 05/27/16 05/27/16 05/28/16 05/28/16 05/28/16 07:00 15:00 23:00 07:00 15:00 23:00 Intake Total 240 ml 840 ml 500 ml 100 ml Output Total 300 ml 700 ml 850 ml 300 ml Balance -60 ml 140 ml -350 ml -200 ml Intake Oral 240 ml 840 ml 500 ml 100 ml IV Total 0 ml Output Urine Total 300 ml 700 ml 850 ml 300 ml # Voids 1 # Bowel Movements 0 0 0 Result Diagram: 05/25/16 1323 05/25/16 1323 Imaging Last Impressions Chest X-Ray 05/25/16 1318 Signed Impressions: Service Date/Time: Wednesday, May 25, 2016 14:00 - CONCLUSION: No acute disease. Seth Oliver MD Objective Remarks gen: cachectic elderly male, moderate resp distress, edentulous. NC in place. chest: very decreased breath sounds bilaterally. minimal air entry. no wheezes noted at this time cv: normal rate, regular rhythm. no appreciable murmurs. abd: soft, nontender, nondistended. no guarding. extr: no peripheral edema. distal pulses 2+ neuro: awake, alert, he takes his time to answer questions. Excuses himself if he forgets what he is talking about. A/P Assessment and Plan 70-year-old male presenting with Acute respiratory failure with acute C02 retention - underlying COPD - O2 dependent- chronic C02 retainer Patient now awake alert with sats 92% at O2 on 3 L NC (usually 2 L nasal cannula baseline). continue on po prednisone and nebulizer treatments Outpatient Dietitian following, Nancy Alvarado/Tuan. Pt voices his desire to speak w the palliative care team, he would like his to be present during that time. He would like to discuss goals of care as he isn't feeling that he has improved much but understands that his condition is end stage and he requires oxygen at all times. lovenox for DVT prophylaxis. Increase activity- as tolerated Discharge Planning Palliative care consult in place. Awaiting final recs from pulm. Transfer order to a regular floor in place. Keena Driver MD May 28, 2016 08:59
[2016-05-28] MEDS: NICOTINE 7 MG/24 HR PATCH TD SCH (09:00)
[2016-05-28] MEDS: predniSONE 20 MG TAB PO SCH ×2 (09:00→20:12)
[2016-05-28 09:48] LABS: BLOOD GAS BASE EXCESS 12.1 mmol/L (-2-2); BLOOD GAS CARBOXYHEMOGLOBIN 1.6 % (0-4); BLOOD GAS HCO3 39 mmol/L (22-26); BLOOD GAS METHEMOGLOBIN 1.2 % (0-2); BLOOD GAS O2 HGB SATURATION 87 % (90-100); BLOOD GAS OXYGEN CONTENT 16.6 Vol % (12.0-20.0); BLOOD GAS PCO2 79 mmHg (38-42); BLOOD GAS PO2 68 mmHg (61-120); BLOOD GAS TOTAL HGB 13.6 G/DL (12.0-16.0); TEMP CORR TO 98.6
[2016-05-28 09:49] LABS: CRITICAL VALUE YES; DRAW SITE LT RADIAL; LITER FLOW 3 L/M; OXYGEN DEVICE NASAL CANNULA
[2016-05-28 09:50] LABS: NUMBER OF ARTERIAL PUNCTURES 2; STAT NO; ULNAR PULSE PRESENT
--- NOTE | 2016-05-28 13:06 | PD.CONS ---
Consult Service Palliative Care . Consult Requested By Dr. Driver . Primary Care Physician Yocasta Choudhury MD . Reason for Consultation a. To assist with evaluation and management of symptoms including: dyspnea, weakness, anxiety b. To assist medical decision maker(s) with: better understanding of current medical conditions; weighing benefits/burdens of medical treatment options; making medical treatment decisions. . (AlyssaRachel) HPI History of Present Illness Mr. Castillo is a 70-year-old male patient who presented to [facility] via EMS on 05/25/16 in severe respiratory distress. The patient has a history of COPD and requires supplemental oxygen, 3 L via nasal cannula, in the home. He is followed by Dr. Giovany Alvarado, pulmonology. Per report, the patient took off his supplemental oxygen while doing some work around the house. The patient could not clearly recall what happened next, but he stated he became increasingly short of breath and lightheaded. His was not at home, and the patient was lucid enough to call 911 for help. Upon EMS arrival, the patient was extremely dyspneic with oxygen saturations in the mid 50s. The patient was administered albuterol 3, 125 mg of Solu-Medrol and placed on a nonrebreather, oxygen saturation subsequently increased to 92%95%. Upon arrival to the emergency department, the patient was immediately placed on BiPAP for respiratory distress. His initial ABG demonstrated 7.29/105/89. This quickly normalized to 7.36/87/85 with BiPAP. Additional diagnostic findings in the ED: * Vital signs: Pulse 95, respirations 35, BP 150/65, oxygen saturation 96% on BiPAPFiO2 40%, oral temperature 98.7 * WBC: 6.3, hemoglobin 12.9, hematocrit 40.4, platelets 129, neutrophils 83.0% * Sodium: 141, potassium 4.7, chloride 90, carbon dioxide >45.0, glucose 1:15, calcium 9.3 * BUN 18, creatinine 0.90, estimated GFR 83 * Troponin: <0.02 * Chest x-ray: No acute disease * EKG shows sinus rhythm without notable ST abnormalities, normal intervals. * Patient sees 3 additional DuoNeb treatments and received azithromycin prophylactically. He was subsequently admitted to critical care medicine was consulted to assist with further evaluation and medical management of the patient's severe hypercarbic respiratory failure. The patient was started on methylprednisolone, with the plan of transitioning back to oral prednisone. He was started on Diamox to assist with severe compensatory metabolic alkalosis. Dr. Vinayak Alvarado, patient's barrel leveler, was consulted. The patient has experienced a gradual decline with no hospitalizations in the past 10 years. He was seen by Dr. alvarado in his office one week prior, and they had an extensive conversation at that time related to the severity of the patient's illness. Per notes, patient's lung functions are in the range of 20% and his resting PCO2s are approximately 80. Patient was on an extensive bronchodilator regime and low dose steroids. Patient has end-stage COPD. Per Dr. Mathias's conversation with the patient, the patient verbalizes understanding that his next COPD exacerbation will likely be life ending. If he requires intubation and mechanical ventilation, it is unlikely the patient would ever be successfully weaned. The patient stated he has been trying to prepare his for life without him. His personal goals are to be a DNR/DNI, but he feels he needs to discuss these difficult decisions with his prior to making further decision. Palliative Care was consulted to assist with symptom management and to discuss with the patient/family the benefits and burdens of his current illnesses and the options regarding future care. . Function/Cognitive Trajectory Mr. Centeno is a 70-year-old man with end-stage COPD. Patient has experienced a gradual decline. Patient uses supplemental oxygen in the home. Approximately 6 months ago the patient's oxygen requirements began to increase, and he must now use supplemental oxygen [id number]. Patient reports he has become progressively more weak. He states 6 months ago he was able to walk into his backyard to get the trash can and take it to the street without feeling short of breath. He now states he is only able to walk 15-20 feet. Patient has an unsteady gait and poor balance making the patient "uncomfortable standing". He reports 2 falls without injuries in the past 2-3 months, the most recent fall was last week. The patient is currently hospitalized with a COPD exacerbation, having increased intermittent confusion. Upon admission, the patient stated he has been making preparations so his will be okay when he is gone. . (Rachel Shah) Review of Systems ROS Limitations: Altered Mental Status (intermittent confusion) Constitutional: COMPLAINS OF: Fatigue, Change in appetite (decreased), Generalized weakness Respiratory: COMPLAINS OF: Shortness of breath Cardiovascular: COMPLAINS OF: Dyspnea on Exertion Musculoskeletal: COMPLAINS OF: Joint pain Hematologic/Lymphatics: COMPLAINS OF: Bruising Neurologic: COMPLAINS OF: Abnormal gait, Poor Balance Psychiatric: COMPLAINS OF: Confusion (Rachel Shah) Past Family Social History Coded Allergies: No Known Allergies (Unverified , 12/24/15) Past Medical History Severe COPD oxygen dependent at 2 L/m nasal cannula 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 Past Surgical History Surgical resection of a chest wall "melanoma" Appendectomy Left elbow fracture . Reported Medications Montelukast (Montelukast Sodium) 10 Mg Tab 10 Mg PO HS Ventolin Hfa 18 GM Inh (Albuterol Sulfate) 90 Mcg/Act Aer 1 Puff INH Q4H PRN Albuterol Neb (Albuterol Sulfate) 2.5 Mg/0.5 Ml Neb 2.5 Mg NEB QID NEB Note: The Albuterol Sulfate Inhalation Solution is concentrated and must be diluted. Read complete instructions carefully before using. Advair Diskus Inh (Fluticasone-Salmeterol Inh) 500-50 Mcg/Blist Aer 1 Puff INH BID Rinse mouth after use. Prednisone 20 Mg Tab 20 Mg PO QID . Current Medications Medications (Trade) Dose Ordered Sig/Esther Route Start Time Stop Time Status Last Admin (NS Flush) 2 ml UNSCH PRN IVF 05/25/16 13:30 05/27/16 20:08 Miscellaneous Information Patient in critical care unit? Ass... [id number] XX 05/25/16 16:45 05/25/16 16:45 (Chlorhexidine 2% Cloth) 3 pack DAILY@04 TOP 05/26/16 04:00 05/30/16 04:01 05/28/16 04:00 (Chlorhexidine 2% Cloth) 3 pack UNSCH PRN TOP 05/25/16 16:45 05/30/16 16:34 (Lovenox Inj) 30 mg Q24H SQ 05/25/16 18:00 05/27/16 17:51 (Habitrol 7 Mg Patch.24 Hr) 1 patch DAILY TD 05/26/16 11:30 05/28/16 09:00 (Deltasone) 20 mg BID PO 05/26/16 21:00 05/28/16 09:00 Miscellaneous Information 1 HS TD 05/26/16 21:00 05/27/16 20:19 . Family History Patient has a significant familial history of severe COPD with multiple family members dying from hypercarbic respiratory failure. . Substance Use Tobacco: [id number] smoking history, patient continues to smoke. Alcohol: EtOH consumption several times weekly. Prescription med abuse: None known Illicits: None known . Psychosocial History Patient is originally from [facility]. He had 2 sisters and one brother, his older sister when she was quite young. The patient served in the [employer]. He retired from the [employer] in April,. She is currently to his second Rashmi. They have been for approximately 14 years. Patient has no children. . Spiritual/Cultural Factors Yarsanism tanja . (Rachel Shah) Today's verbally stated goals: After discussing the process of cardiopulmonary resuscitation at length including compressions, medications, cardioversion and intubation/mechanical ventilation, the patient has requested his CODE STATUS be changed to NO CODE DNR. He would like to return to his home with hospice services for symptom management and end-of-life care. . Family/friends goals: Patient's , Rashmi, supports the patient's decision and is awaiting a phone call from [facility] hospice admission nurse. . Ethical and Legal Issues Per [place] statutes, in the absence of written advanced directives healthcare proxy decision making would fall to the patient's , Rashmi Castillo. . (Rachel Shah) Physical Exam Vital Signs Date Time Temp Pulse Resp B/P Pulse Ox O2 Delivery O2 Flow Rate FiO2 05/28/16 08:00 97.9 85 22 130/68 98 05/28/16 08:00 93 05/28/16 07:57 92 Nasal Cannula 3.00 05/28/16 07:00 95 Nasal Cannula 3.00 05/28/16 04:17 96 Nasal Cannula 3.00 05/28/16 04:03 98 30 05/28/16 04:00 95 Nasal Cannula 3.00 05/28/16 04:00 98.4 77 21 149/76 96 3/17/17 04:00 77 05/28/16 01:06 95 35 05/28/16 00:00 98.6 89 15 147/70 96 05/28/16 00:00 89 05/27/16 23:10 95 35 05/27/16 23:00 94 Bi-Pap 05/27/16 20:00 100 05/27/16 20:00 91 Nasal Cannula 3.00 05/27/16 20:00 98.4 100 30 117/57 91 05/27/16 19:27 95 Nasal Cannula 3.00 05/27/16 18:00 93 05/27/16 16:00 87 05/27/16 16:00 98.0 92 20 146/70 94 05/27/16 14:00 93 . 05/27/16 05/28/16 19:00 07:00 Intake Total 840 ml 600 ml Output Total 700 ml 1150 ml Balance 140 ml -550 ml Intake Oral 840 ml 600 ml IV Total 0 ml Output Urine Total 700 ml 1150 ml # Bowel Movements 0 0 . Exam CONSTITUTIONAL/GENERAL: This is an adequately nourished, elderly male patient, on nasal cannula with minimal respiratory distress. TUBES/LINES/DRAINS: PIV 1 SKIN: No wounds seen anteriorly. Skin temperature appropriate. Not diaphoretic. Skin appears thin and fragile, resident. HEAD: Atraumatic. Normocephalic. EYES: Pupils equal and round and reactive. . No scleral icterus. No injection or drainage. Fundi not examined. ENT: Hearing grossly normal. Nose without bleeding or purulent drainage. Throat without visible erythema, exudates, masses, or lesions. Nose in grayish, purple. NECK: Trachea midline. Supple, nontender. No palpable thyroid enlargement or nodularity. CARDIOVASCULAR: Regular rate and rhythm without murmurs, gallops, or rubs. No JVD. Peripheral pulses symmetric. RESPIRATORY/CHEST: Breath sounds diminished bilaterally GASTROINTESTINAL: Abdomen soft, non-tender, nondistended. No guarding. Bowel sounds present. GENITOURINARY: Without palpable bladder distension. MUSCULOSKELETAL: Extremities without clubbing, cyanosis, or edema. . No mottling or clubbing. LYMPHATICS: No palpable cervical or supraclavicular adenopathy. NEUROLOGICAL: Awake and alert. Oriented to person place and time. Follows commands. Moving all extremities spontaneously. PSYCHIATRIC: No obvious anxiety/depression. no apparent hallucinations or other psychotic thought process. . (Rachel Shah) Diagnostic Tests Laboratory Laboratory Tests Test 05/25/16 05/25/16 05/25/16 05/25/16 13:23 13:49 15:29 16:15 White Blood Count 6.3 TH/MM3 (4.0-11.0) Red Blood Count 4.25 MIL/MM3 (4.50-5.90) Hemoglobin 12.9 GM/DL (13.0-17.0) Hematocrit 40.4 % (39.0-51.0) Mean Corpuscular Volume 95.1 FL (80.0-100.0) Mean Corpuscular Hemoglobin 30.5 PG (27.0-34.0) Mean Corpuscular Hemoglobin 32.1 % Concent (32.0-36.0) Red Cell Distribution Width 13.9 % (11.6-17.2) Platelet Count 129 TH/MM3 (150-450) Mean Platelet Volume 9.0 FL (7.0-11.0) Neutrophils (%) (Auto) 83.0 % (16.0-70.0) Lymphocytes (%) (Auto) 9.0 % (9.0-44.0) Monocytes (%) (Auto) 6.9 % (0.0-8.0) Eosinophils (%) (Auto) 0.8 % (0.0-4.0) Basophils (%) (Auto) 0.3 % (0.0-2.0) Neutrophils # (Auto) 5.3 TH/MM3 (1.8-7.7) Lymphocytes # (Auto) 0.6 TH/MM3 (1.0-4.8) Monocytes # (Auto) 0.4 TH/MM3 (0-0.9) Eosinophils # (Auto) 0.1 TH/MM3 (0-0.4) Basophils # (Auto) 0.0 TH/MM3 (0-0.2) CBC Comment DIFF FINAL Differential Comment Sodium Level 141 MEQ/L (136-145) Potassium Level 4.7 MEQ/L (3.5-5.1) Chloride Level 90 MEQ/L (98-107) Carbon Dioxide Level GREATER THAN 45.0 MEQ/L (21.0-32.0) Anion Gap 6 MEQ/L (5-15) Blood Urea Nitrogen 18 MG/DL (7-18) Creatinine 0.90 MG/DL (0.60-1.30) Estimat Glomerular Filtration 83 ML/MIN (>89) Rate Random Glucose 115 MG/DL (74-106) Calcium Level 9.3 MG/DL (8.5-10.1) Troponin I LESS THAN 0.02 NG/ML (0.02-0.05) Blood Gas Puncture Site RT RADIAL LT RADIAL Blood Gas Patient Temperature 98.6 98.6 Blood Gas HCO3 49 mmol/L 48 mmol/L (22-26) (22-26) Blood Gas Base Excess 21.4 mmol/L 21.2 mmol/L (-2-2) (-2-2) Blood Gas Oxygen Saturation 92 % (90-100) 92 % (90-100) Arterial Blood pH 7.29 7.36 (7.380-7.420) (7.380-7.420) Arterial Blood Partial 105 mmHg 87 mmHg (38-42) Pressure CO2 (38-42) Arterial Blood Partial 89 mmHG 85 mmHG Pressure O2 (61-120) (61-120) Arterial Blood Oxygen Content 16.5 Vol % 17.3 Vol % (12.0-20.0) (12.0-20.0) Arterial Blood 3.5 % (0-4) 3.3 % (0-4) Carboxyhemoglobin Arterial Blood Methemoglobin 1.0 % (0-2) 1.0 % (0-2) Blood Gas Hemoglobin 12.7 G/DL 13.3 G/DL (12.0-16.0) (12.0-16.0) Oxygen Delivery Device NASAL CANNULA BiPAP Blood Gas Liter Flow 3 L/M Blood Gas Ventilator Setting 12/5/40% Blood Gas Inspired Oxygen 40 % Nasal Screen MRSA (PCR) NEGATIVE (NEGATIVE) Test 05/26/16 05/26/16 05/28/16 00:45 05:49 00:00 Blood Gas Puncture Site RT RADIAL LT RADIAL LT RADIAL Blood Gas Patient Temperature 98.6 98.6 98.6 Blood Gas HCO3 41 mmol/L 41 mmol/L 39 mmol/L (22-26) (22-26) (22-26) Blood Gas Base Excess 13.5 mmol/L 13.8 mmol/L 12.1 mmol/L (-2-2) (-2-2) (-2-2) Blood Gas Oxygen Saturation 94 % (90-100) 91 % (90-100) 87 % (90-100) Arterial Blood pH 7.29 7.26 7.31 (7.380-7.420) (7.380-7.420) (7.380-7.420) Arterial Blood Partial 88 mmHg (38-42) 94 mmHg (38-42) 79 mmHg (38-42) Pressure CO2 Arterial Blood Partial 117 mmHg 82 mmHg 68 mmHg Pressure O2 (61-120) (61-120) (61-120) Arterial Blood Oxygen Content 18.1 Vol % 17.4 Vol % 16.6 Vol % (12.0-20.0) (12.0-20.0) (12.0-20.0) Arterial Blood 2.6 % (0-4) 2.5 % (0-4) 1.6 % (0-4) Carboxyhemoglobin Arterial Blood Methemoglobin 1.5 % (0-2) 1.3 % (0-2) 1.2 % (0-2) Blood Gas Hemoglobin 13.6 G/DL 13.5 G/DL 13.6 G/DL (12.0-16.0) (12.0-16.0) (12.0-16.0) Oxygen Delivery Device BIPAP BiPAP NASAL CANNULA Blood Gas Ventilator Setting IPAP10/EPAP5 IPAP10/EPAP5 Blood Gas Inspired Oxygen 40 % 35 % Blood Gas Liter Flow 3 L/M . (Rachel Shah) Result Diagram: 05/25/16 1323 05/25/16 1323 Imaging Last 72 hours Impressions Chest X-Ray 05/25/16 1318 Signed Impressions: Service Date/Time: Wednesday, May 25, 2016 14:00 - CONCLUSION: No acute disease. Seth Oliver MD . (Rachel Shah) Patient/Family Conference Present at Family Conference: Met with patient and his at bedside. . Family Conference Location: Bedside Issues Discussed: * Palliative care role, purpose, approach * Additional medical, psychosocial, and spiritual history * Patients general health, functional status, and cognitive changes in the months leading up to the current hospitalization * Patient/family understanding of the current medical problems * Patient/family understanding of prognosis * Patients goals of care as best understood from advance directives and/or conversations and/or values * Current medical treatment options and benefits/burdens of those options * Likely scenarios comparing ongoing aggressive care with a transition to comfort measures only * Questions answered to the best of my ability * Palliative care contact information provided . (Rachel Shah) Assessment and Plan Disease Oriented Problem List: (1) Elevated blood pressure (2) Respiratory failure with hypoxia and hypercapnia (3) COPD with exacerbation Symptom Scale: (1) Anxiety Comment: No anxiety at the time of exam. Intermittent anxiety is likely secondary to shortness of breath. . (2) Dyspnea Comment: Patient currently hospitalized with COPD exacerbation. Patient reports resolution worsening shortness of breath. He now requires supplemental oxygen [id number]. He becomes short of breath with minimal activity and was take frequent breaks to complete tasks. 05/17/16: Lung functioning in the range of 20%, resting PCO2s in the 80s. (3) Weakness Pertinent Non-Medical Issues Psychosocial:Patient is originally from [facility]. He had 2 sisters and one brother, his older sister when she was quite young. The patient served in the [employer]. He retired from the [employer] service in April,. She is currently to his second Rashmi. They have been for approximately 14 years. Patient has no children. Spiritual: Yarsanism tanja Legal: Per [place] statutes, in the absence of written advanced directives healthcare proxy decision making would fall to the patient's , Rashmi Castillo. Ethical issues impacting care: No known ethical issues impacting care . Important Contacts Rashmi Castillo, : [phone] or [phone] . Prognosis Patient is a 70-year-old male with a diagnosis of end-stage COPD who has experienced a gradual decline. Patient has a [id number] smoking history and continues to smoke daily. He reports progressively worsening shortness of breath and weakness. He now requires supplemental oxygen [id number]. Lung functioning in the range of 20%, resting PCO2s in the 80s. Patient has requested his CODE STATUS be changed to NO CODEDNR. He would like to return to his home with hospice services. Given patient's advanced age, end-stage condition and recent declinehis overall life expectancy is less than 6 months. . Code Status: No Code Plan * NO CODEDNR * Decision-making: Patient is currently capacitated to participate in clarification of medical treatment goals. Per [place] statutes, in the absence of written advanced directives healthcare proxy decision making would fall to the patient's , Rashmi Castillo. * Goals: Patient would like to return home with hospice services. * Patient and his were provided with health care surrogate form and living will forms to review. * After discussing the process of cardiopulmonary resuscitation at length including compressions, medications, cardioversion and intubation/mechanical ventilation, the patient has requested his CODE STATUS be changed to NO CODE DNR. * Hospice consult order placed-spoke with [facility] in hospice admissions. Report provided to hospice admission nurse, Kalee Us * Discussed with patient's nurse (Sultana) and Dr. Driver. Dr. Driver is supportive of family's decision to transition to comfort focus care. * Symptom managementdyspnea: Patient currently hospitalized with COPD exacerbation. Patient reports resolution worsening shortness of breath. He now requires supplemental oxygen [id number]. He becomes short of breath with minimal activity and was take frequent breaks to complete tasks. 05/17/16: Lung functioning in the range of 20%, resting PCO2s in the 80s. * Symptom managementanxiety: Patient denies anxiety on exam. He reports intermittent anxiety which is likely secondary to being diagnosed with an end- stage condition and/or dyspnea. Would recommend low-dose lorazepam, 0.5 mg PO/ SL q6 hours PRN for anxiety. * Palliative care contact information was provided to the patient's . * Palliative care will continue to follow this patient throughout his hospitalization to build rapport, assist with symptom managment and goal clarification. (Rachel Shah) Thank you for the opportunity to participate in the care of Mr. Castillo. (Rachel Shah) Attestation To help prompt me to consider important information that might be impacting today's encounter and assessment, information from prior notes written by myself or my colleagues may have been "brought forward" into today's note. My signature on this note, however, is an attestation that I personally performed the exam, history, and/or decision-making noted today, and, unless otherwise indicated, the interactions with patient, family, and staff as well as the review of records all occurred today. I also attest that the listed assessment and stated plan reflect my best clinical judgment today based on the combination of historical information, prior notes, and today's exam/ interactions. When time spent is documented, it refers only to time spent today by the signer, or if indicated, combined time spent today by collaborating physician/nurse practitioner. . (Rachel Shah) Collaborating MD Comments Chart reviewed. Cased discussed with palliative care ASSEMBLER INSULATOR. Above ASSEMBLER INSULATOR note reviewed and I concur. . (Cassius Redd MD) Rachel Shah May 28, 2016 13:05 Cassius Redd MD August 09, 2016 13:29
[2016-05-28] MEDS: ENOXAPARIN SODIUM 30 MG/0.3 ML SYRINGE SQ SCH (17:36)
[2016-05-28] MEDS: REMOVE OLD NICODERM (NICOTINE) PATCH TD SCH (20:13)
--- NOTE | 2016-05-28 20:50 | HHI.PR ---
Subjective Remarks [id number] with Severe COPD, Hypercapnoic RF Uses CPAP feels much better no cough or sp On NC, doing much better Used CPAp last night Objective Vital Signs Vital Signs Date Time Temp Pulse Resp B/P Pulse Ox O2 Delivery O2 Flow Rate FiO2 05/28/16 20:19 Nasal Cannula 2.00 05/28/16 16:46 94 Nasal Cannula 4.00 05/28/16 15:12 98.2 102 20 145/66 93 05/28/16 12:00 98.4 92 20 141/65 96 05/28/16 12:00 92 05/28/16 08:00 97.9 85 22 130/68 98 05/28/16 08:00 93 05/28/16 07:57 92 Nasal Cannula 3.00 05/28/16 07:00 95 Nasal Cannula 3.00 05/28/16 04:17 96 Nasal Cannula 3.00 05/28/16 04:03 98 30 05/28/16 04:00 95 Nasal Cannula 3.00 05/28/16 04:00 98.4 77 21 149/76 96 05/28/16 04:00 77 05/28/16 01:06 95 35 05/28/16 00:00 98.6 89 15 147/70 96 05/28/16 00:00 89 05/27/16 23:10 95 35 05/27/16 23:00 94 Bi-Pap I/O 05/27/16 05/27/16 05/27/16 05/28/16 05/28/16 05/28/16 07:00 15:00 23:00 07:00 15:00 23:00 Intake Total 240 ml 840 ml 500 ml 100 ml 500 ml Output Total 300 ml 700 ml 850 ml 300 ml 700 ml Balance -60 ml 140 ml -350 ml -200 ml -200 ml Intake Oral 240 ml 840 ml 500 ml 100 ml 500 ml IV Total 0 ml 0 ml Output Urine Total 300 ml 700 ml 850 ml 300 ml 700 ml # Voids 1 # Bowel Movements 0 0 0 0 Result Diagram: 05/25/16 1323 05/25/16 1323 Objective Remarks GENERAL: WBWN WM, mild sob SKIN: Warm and dry. HEAD: Normocephalic. EYES: No scleral icterus. No injection or drainage. NECK: Supple, trachea midline. No JVD or lymphadenopathy. CARDIOVASCULAR: Regular rate and rhythm without murmurs, gallops, or rubs. RESPIRATORY: Breath sounds equal bilaterally. No accessory muscle use. End exp rhonchi GASTROINTESTINAL: Abdomen soft, non-tender, nondistended. MUSCULOSKELETAL: No cyanosis, or edema. BACK: Nontender without obvious deformity. No CVA tenderness. A/P Assessment and Plan Hypercapnoic RF Severe COPD Anxiety PLAN: Use CPAP at night prn only Aerosol nebs Cont Abx PO prednisone Supplement 02 to keep sat >90% will FU in AM Cr Dickerson MD May 28, 2016 20:50
[2016-05-29] VITALS: BP 142/65; PULSE 100; RESP 18; TEMP 98.1; O2SAT 95
[2016-05-29 00:04] VITALS: O2SAT 96
[2016-05-29] MEDS: RESP: ALBUTEROL 2.5 MG/IPRATROPIUM 0.5 MG NEB (SCH) INH ×4 (00:04→12:40)
[2016-05-29] MEDS: CHLORHEXIDINE GLUCONATE 2 % 1 PACK (2 CLOTHS)(taper/protocol) TOP SCH (03:32)
[2016-05-29 04:00] VITALS: BP 126/60; PULSE 94; RESP 18; TEMP 97.4; O2SAT 95
[2016-05-29 08:00] VITALS: BP 115/70; PULSE 87; RESP 20; TEMP 98; O2SAT 96
[2016-05-29] MEDS: SODIUM CHLORIDE 0.9% FLUSH 5 ML FLUSH IVF PRN (08:02)
[2016-05-29] MEDS: predniSONE 20 MG TAB PO SCH (08:02)
[2016-05-29 09:14] VITALS: O2SAT 97
[2016-05-29 12:00] VITALS: BP 147/66; PULSE 94; RESP 20; TEMP 97.1; O2SAT 96
[2016-05-29] MEDS ORDERED: BUDESONIDE-FORMOTEROL 160/4.5 MCG INHALER INH SCH (12:00)
[2016-05-29] MEDS ORDERED: SYMB160A INH (12:43)
--- NOTE | 2016-05-29 12:45 | HHI.DCPOC ---
Discharge Care Plan Diagnosis: (1) Respiratory failure with hypoxia and hypercapnia (2) COPD with exacerbation Goals to Promote Your Health * To prevent worsening of your condition and complications * To maintain your health at the optimal level Directions to Meet Your Goals Take your medications as prescribed Follow your dietary instruction Follow activity as directed Keep your appointments as scheduled Take your immunizations and boosters as scheduled If your symptoms worsen call your PCP, if no PCP go to Urgent Care Center or Emergency Room Smoking is Dangerous to Your Health. Avoid second hand smoke Call the 24-hour hour crisis hotline for domestic abuse at Keena Driver MD May 29, 2016 12:44
--- NOTE | 2016-05-29 12:46 | HHI.DS ---
Discharge Summary Admission Date May 25, 2016 at 14:52 Discharge Date: May 29, 2016 Admitting Diagnosis hypercapnic and hypoxic respiratory failure (1) Respiratory failure with hypoxia and hypercapnia ICD Code: J96.91 Diagnosis: Principal (2) COPD with exacerbation ICD Code: J44.1 Diagnosis: Principal Procedures none Brief History - From Admission Patient is a very pleasant 70-year-old male with known history of severe COPD oxygen dependent at 2 L nasal cannula was still smokes about half pack per day whose baseline exercise capacity is very limited by his chronic respiratory status. He also did admit that lately has been getting more forgetful. He was doing his regular household work daily when he took off his oxygen as he went to one area off his house to another room. Forgot about it and started getting short of breath. Took him while to get to the phone and by the time he called 911 patient was having labored breathing. He was given 3 breathing treatments at the ambulance and was brought in here for further evaluation promptly. On evaluation at the ER patient received breathing treatment and it showed a PCO2 of 10 and a pH of 7.29. Patient though is awake alert THIS time. Patient was placed on BiPAP with improvement of blood gas. Patient admitted for further evaluation and management. Patient states periodic coughing no sputum production. Baseline has two-pillow orthopnea occasional leg swelling. He is followed closely by Dr. Vinayak Alvarado. At the ER , placed on BiPAP and is now comfortable. He is very compliant with his inhalers. And as stated he still smokes half pack a day. CBC/BMP: 05/25/16 1323 05/25/16 1323 Significant Findings Laboratory Tests Test 05/28/16 00:00 Blood Gas HCO3 39 mmol/L (22-26) Blood Gas Base Excess 12.1 mmol/L (-2-2) Blood Gas Oxygen Saturation 87 % (90-100) Arterial Blood pH 7.31 (7.380-7.420) Arterial Blood Partial 79 mmHg (38-42) Pressure CO2 Imaging Last Impressions Chest X-Ray 05/25/16 1318 Signed Impressions: Service Date/Time: Wednesday, May 25, 2016 14:00 - CONCLUSION: No acute disease. Seth Oliver MD PE at Discharge gen: cachectic elderly male, moderate resp distress, edentulous. NC in place. chest: very decreased breath sounds bilaterally. minimal air entry. no wheezes noted at this time cv: normal rate, regular rhythm. no appreciable murmurs. abd: soft, nontender, nondistended. no guarding. extr: no peripheral edema. distal pulses 2+ neuro: awake, alert, he takes his time to answer questions. Excuses himself if he forgets what he is talking about. Pt update on day of discharge Pt states he feels the same. would like to go home w hospice. denies any CP/n/v Hospital Course 70-year-old male presenting with Acute respiratory failure with acute C02 retention - underlying COPD - O2 dependent- chronic C02 retainer Palliative care did evaluate the patient and patient wishes to go home w hospice. he did speak w the education instructor yesterday. Dr. Alvarado from pul saw the patient today and is agreeable w discharge. he would like him to go on prednisone and symbicort. scripts in chart. Pt to f/u w him next week Pt Condition on Discharge: Stable Discharge Disposition: Hospice/ Home Discharge Time: > 30 minutes Discharge Instructions DIET: Follow Instructions for: Heart Healthy Diet Activities you can perform: Regular-No Restrictions Follow up Referrals: Pulmonology - 1 Week New Medications: Oxygen tank (Oxygen tank) 1 Ea Tank 2 LITER LARRY.CANULA CONTINUOUS Oxygen Concentrator Portable Gaseous 2 L/min via Nasal Cannula Continuous For 99 months HYPOXEMIA PREVENTION #1 CYLINDER Budesonide-Formoterol Inh (Symbicort Inh) 160-4.5 Mcg/Act Aero 1 PUFF INH Q12HR #1 INHALER Keena Driver MD May 29, 2016 12:46
[2016-05-29] MEDS ORDERED: OXYGENTANK NAS.CANULA (13:20)
--- NOTE | 2016-06-03 07:40 | MD ---
cc: Tiny BAINS M.D. ADMISSION DATE: 05/25/2016 DISCHARGE DATE: 05/29/2016 Damian is a 70-year-old white male whom I have followed for about a decade now with very severe COPD progressive due to the fact that he continued to smoke right up until this time. PCO2 as an outpatient have been in the 60-70 range and he presented on 05/25 with a pCO2 of 105. As he tells the story now, he was at home, off of his oxygen on the couch, began to get more short of breath, gradually more confused, and never did actually get his oxygen on. He realized he was in trouble and called 9-1-1. They responded and transported him to the hospital. Fortunately he responded to aerosolized bronchodilators, steroids and BiPap rather quickly, was monitored in ICU for a couple of days and now has been on the floor basically clinically stable. Blood gases were repeated yesterday on three liters with a pO2 of 68, pH of 7.3 and a pCO2 of 79 which is close to his baseline. While in the hospital, Damian has had a long conversation with the Hospice services. His has been involved in that as well and he would like to go home on Hospice support. MEDICATIONS ON DISCHARGE 1. Oxygen continuously which he has at home 2. Aerosolized bronchodilators four to five times a day 3. I am also putting him on Symbicort and continuing prednisone b.i.d. until I see him back in the office next week. Damian understands the importance of not smoking. He seems totally committed to that and does have both nicotine patches at home but if he would prefer, he has also had Chantix previously. He will be discharged with Hospice care. I will see him back in the office next week. I have also encouraged him to attend rehab which we have discussed several weeks ago as the only serious medical illnesses that Damian has is the underlying COPD and he may very well to recover some of his functional capacity through rehab. Further diagnostic and/or therapeutic range will depend on follow-up in his ongoing clinical course. MD FAVIOLA Benz/RIYA /12:00 PM /7:28 AM
== END 2016-05-29 14:35 | disposition hospice, home (50) | DRG 189 ==
LOC: NEPE 13:10 → NEDH 14:52 → HIME 16:05 → N04A 05-28 15:12
PROVIDERS: ADMIT Hospitalist; ATTEND Hospitalist
PROC: 5A09457 Assistance with Respiratory Ventilation, 24-96 Consecutive Hours, Continuous Positive Airway Pressure (ICD-10-PCS; principal; 2016-05-25)
DX: J96.21 Acute and chronic respiratory failure with hypoxia (principal); E87.2 Acidosis; J44.1 Chronic obstructive pulmonary disease with (acute) exacerbation; J96.22 Acute and chronic respiratory failure with hypercapnia; J45.909 Unspecified asthma, uncomplicated; Z99.81 Dependence on supplemental oxygen; F17.210 Nicotine dependence, cigarettes, uncomplicated; Z85.820 Personal history of malignant melanoma of skin
CPT/HCPCS: 36600; 71010; 80048; 82805; 84484; 85025; 87641; 90686; 93005; 94002; 94003; 94150; 94640; 94664; 94667; 94668; J1120; J1650; J2930; J7512; Q2038